=== PATIENT | female | born 1990 | race Caucasian/White ===

== ENCOUNTER 2019-04-29 21:22 | Observation (INO) ==
[2019-04-29] MEDS ORDERED: NORMAL SALINE 1,000 ML IV ONE ×2 (21:52→23:50)
[2019-04-29] MEDS ORDERED: ONDANSETRON HCL/PF 2 MG/ML VIAL IV ONE (21:52)
[2019-04-29] MEDS ORDERED: HYDROmorphone HCL 1 MG/ML DISP.SYRIN IV ONE ×3 (21:52→22:43)
--- NOTE | 2019-04-29 21:55 | ERNOTE ---
Abdominal HPI - Narrative Date of Service: 04/29/19 - General Chief Complaint: Abdominal Pain Time Seen by Provider: 04/29/19 21:36 Source: patient Exam Limitations: no limitations - Immun/Allergies/Home Medications Immunizatons: IMMUNIZATION HX Immunizations Up to Date Yes History of Influenza Vaccine No Hx Pneumococcal Vaccination No Allergies/Adverse Reactions: Allergies No Known Allergies Allergy (Unverified 04/29/19 21:33) Home Medications: HOME MEDICATIONS Bupropion HCl [Wellbutrin Sr] 150 mg PO DAILY 04/29/19 [Last Taken Unknown] FLUoxetine HCL [Fluoxetine HCl] 20 mg PO DAILY 04/29/19 [Last Taken Unknown] - Pain Score Pain Score #1 Pain Score: 8 Abdominal Pain Onset Location: RUQ, flank Pain Radiation: flank - History of Present Illness Narrative: 28-year-old female comes to the emergency room with a 2-day history of nausea vomiting diarrhea right upper quadrant pain she had diarrhea and vomiting multiple times lasting the last few hours patient has quite an extensive history of endometriosis hysterectomy and gallbladder at the age of 15 denies any fever or chills Date (Duration): 04/29/19 Time (Timing): 21:46 Timing: constant Quality: moderate Activities at Onset: none Associated Symptoms: Present: nausea, vomiting Prior Abdominal Problems: Present: other - Hysterectomy and cholecystectomy Review of Systems - Review of Systems Constitutional: Present: weakness, fatigue EYE: Present: no symptoms reported ENT: Present: no symptoms reported Respiratory: Present: no symptoms reported Cardiology: Present: no symptoms reported Gastrointestinal/Abdominal: Present: nausea, vomiting, diarrhea, abdominal pain Genitourinary: Present: no symptoms reported Musculoskeletal: Present: no symptoms reported Skin: Present: no symptoms reported Neurological: Present: no symptoms reported Endocrine: Present: no symptoms reported Hematologic/Lymphatic: Present: no symptoms reported Medical History (Last Reviewed 04/29/19 @ 21:48 by Francisco Harris MD) Anxiety Depression Hx of endometriosis No pertinent past medical history Surgical History: Surgical History (Last Reviewed 04/29/19 @ 21:48 by Francisco Harris MD) H/O: hysterectomy Hx of appendectomy Hx of cholecystectomy Family History: Family History (Last Reviewed 04/29/19 @ 21:44 by Cristy Garcia RN) Mother Depression Anxiety Father Diabetes Hypertension Social History: (Last Updated 04/29/19 @ 21:33 by Brandee Ramos RN) Tobacco: Smoking Status: Never smoker Alcohol: alcohol intake: never Substance Use: substance use type: does not use Physical Exam - Physical Exam General Appearance: Present: moderate distress Head Exam: Present: normal inspection Eye Exam: Normal inspection: bilateral Ears, Nose, Throat: Present: normal ENT inspection, dry mucous membranes Neck: Present: normal inspection Respiratory: Present: no respiratory distress Cardiovascular/Chest: Present: regular rate, rhythm Gastrointestinal/Abdominal: Present: soft, tenderness, abnormal bowel sounds - Decreased bowel. Absent: nondistended Back Exam: Present: normal inspection Extremity Exam: Present: normal inspection Neurological Exam: Present: alert, oriented Skin Exam: Present: normal color Lymphatic Exam: Present: no adenopathy Progress - Results and Orders Patient's Lab Results:: I have reviewed the patient's lab results. Results and Orders: Patient white count within normal limits chemistries show potassium 3.0 urine no infectious process but is very bloody CAT scan report was essentially no acute abnormalities patient still nauseous and complaining of pain we will continue to push fluids control her pain and try for admit her as observation for pain control and fluids her specific gravity is a 1030 - Vital Signs Patient's Vital Signs:: I have reviewed the patient's vital signs. 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
[2019-04-29 22:09] LABS: Hematocrit 34.2 % (37.0-47.0); Mean Cell Volume 87.2 fl (78-100); Mean Corpuscular Hemoglobin 28.1 pg (27-31); Mean Corpuscular Hgb Conc 32.2 g/dl (32-36); Neutrophil % 45.5 % (42-75.0); Platelet Count 242 K/mm3 (150-450); Red Blood Count 3.92 M/mm3 (4.2-5.4); Red Cell Distribution Width 14.1 % (11.5-14.0); White Blood Count 4.4 K/mm3 (4.0-10.5)
[2019-04-29 22:15] LABS: Urine Appearance Cloudy (CLEAR); Urine Bacteria 1+; Urine Bilirubin 1 mg/dl (NEGATIVE); Urine Blood 250 /ul (NEGATIVE); Urine Color Dark Yellow; Urine Ketone 15 mg/dL (NEGATIVE); Urine Nitrite Negative (NEGATIVE); Urine Protein 15 mg/dL (NEGATIVE); Urine RBC >50 /hpf (0-5); Urine Specific Gravity >=1.030 SP.GR. (1.005-1.010); Urine Urobilinogen Normal (NORMAL); Urine WBC TRACE /hpf (0-5); Urine pH 5.5 pH (5.0-7.0)
[2019-04-29] MEDS ORDERED: DIATRIZOATE MEGLUMINE, SODIUM 30 ML BTL PO ONE (22:16)
[2019-04-29 22:24] LABS: Albumin * 3.8 gm/dl (3.4-5.0); Anion Gap 13.3 mmol/L (6.8-13.8); BUN/Creatinine Ratio 7.5 (9.0-21.6); Bilirubin, Total 0.3 mg/dL (0.0-1.1); Calcium * 8.2 mg/dL (7.9-10.9); Carbon Dioxide 25.7 mmol/L (24-32.6); Total Protein 7.5 gm/dL (6.2-8.2)
[2019-04-29] MEDS ORDERED: POTASSIUM CHLORIDE 20 MEQ TABLET.SA PO ONE (23:41)
[2019-04-29] MEDS ORDERED: CEPHALEXIN MONOHYDRATE 250 MG CAPSULE PO ONE (23:42)
[2019-04-29] MEDS ORDERED: LEVOFLOXACIN IN DEXTROSE 5 % 500 MG/100 ML BAG IV SCH (23:45)
[2019-04-29] MEDS ORDERED: HYDROmorphone HCL 1 MG/ML DISP.SYRIN IM ONE (23:50)
[2019-04-30] MEDS ORDERED: IBUPROFEN 800 MG TABLET PO PRN (02:19)
[2019-04-30] MEDS ORDERED: ACETAMINOPHEN 500 MG TABLET PO PRN (02:20)
[2019-04-30] MEDS ORDERED: ONDANSETRON HCL/PF 2 MG/ML VIAL IV ONE (02:20)
[2019-04-30] MEDS ORDERED: HYDROmorphone HCL 1 MG/ML DISP.SYRIN IV ONE (02:30)
[2019-04-30] MEDS: POTASSIUM CHLORIDE IN WATER 100 ML IV SCH ×4 (03:06→06:11)
--- NOTE | 2019-04-30 06:46 | HP ---
Chief Complaint - Chief Complaint Date of Service: 04/30/19 Time of Service: 10:30 Chief Complaint: Right upper quadrant abdominal pain History of Present Illness: Plan 8-year-old female admitted to the floor for right upper quadrant abdominal pain. Active work-up completed in the ER which was unremarkable. Overnight patient with consistently asking for pain medication. Patient was not happy with my evaluation and was demanding pain medication or I discharge her. Patient left AMA shortly after. Medical History (Last Updated 04/30/19 @ 01:15 by Mayelin Sanford RN) Anxiety Depression Hx of endometriosis Kidney stones No pertinent past medical history Surgical History: Surgical History (Last Reviewed 04/30/19 @ 01:15 by Mayelin Sanford RN) H/O: hysterectomy Hx of appendectomy Hx of cholecystectomy Family History: Family History (Last Reviewed 04/30/19 @ 01:15 by Mayelin Sanford RN) Mother Depression Anxiety Father Diabetes Hypertension Social History: (Last Reviewed 04/30/19 @ 01:15 by Mayelin Sanford RN) Tobacco: Smoking Status: Never smoker Alcohol: alcohol intake: never Substance Use: substance use type: does not use Immunizations: IMMUNIZATION HX Immunizations Up to Date Yes History of Influenza Vaccine No Hx Pneumococcal Vaccination No Allergies/Adverse Reactions: Allergies Allergy/AdvReac Type Severity Reaction Status Date / Time metoclopramide [From Reglan] AdvReac Severe Other Verified 04/30/19 01:19 prochlorperazine AdvReac Severe Other Verified 04/30/19 01:19 [From Compazine] promethazine [From Phenergan] AdvReac Severe Other Verified 04/30/19 01:19 haloperidol [From Haldol] AdvReac Verified 04/30/19 01:17 Home Medications: HOME MEDICATIONS Bupropion HCl [Wellbutrin Sr] 150 mg PO DAILY 04/29/19 [Last Taken 04/28/19] FLUoxetine HCL [Fluoxetine HCl] 20 mg PO DAILY 04/29/19 [Last Taken 04/28/19] Estradiol [Climara] 0.1 mg TD Q2D 04/30/19 [Last Taken 04/28/19] Ondansetron HCl [Zofran] 8 mg PO QID PRN 04/30/19 [Last Taken Unknown] Exam - Exam Vital Signs: Vital Signs - Last Taken Temp 36.6 C 04/30/19 01:10 Pulse 78 04/30/19 01:10 Resp 16 04/30/19 01:10 BP 121/78 04/30/19 01:10 Pulse Ox 99 04/30/19 01:10 Diagnostic Studies: Abnormal Lab Results 04/29/19 04/29/19 04/29/19 Range/Units 21:55 22:05 22:05 RBC 3.92 L (4.2-5.4) M/mm3 Hgb 11.0 L (12.5-16.0) gm/dL Hct 34.2 L (37.0-47.0) % RDW 14.1 H (11.5-14.0) % Immature Gran % (Auto) 0.00 L (0.001-0.429) % Monocytes % 10.2 H (0.0-9) % Eosinophils % 3.4 H (0.0-3.0) % Potassium 3.0 L (3.4-4.6) mmol/L BUN/Creatinine Ratio 7.5 L (9.0-21.6) Calcium Adj for Albumin 8.0 L (8.4-10.2) mg/dL ALT 10 L (19-67) U/L Lipase 58 L (73-393) U/L Urine Protein 15 H (NEGATIVE) mg/dL Urine Blood 250 H (NEGATIVE) /ul Urine Bilirubin 1 H (NEGATIVE) mg/dl Prot Sulfosalicylic Acd 3+ H (0) mg/dL Urine RBC >50 H (0-5) /hpf Urine WBC Trace H (0-5) /hpf Urine Bacteria 1+ H (NONE) Laboratory Results WBC 4.4 K/mm3 (4.0-10.5) 04/29/19 22:05 RBC 3.92 M/mm3 (4.2-5.4) L 04/29/19 22:05 Hgb 11.0 gm/dL (12.5-16.0) L 04/29/19 22:05 Hct 34.2 % (37.0-47.0) L 04/29/19 22:05 MCV 87.2 fl (78-100) 04/29/19 22:05 MCH 28.1 pg (27-31) 04/29/19 22:05 MCHC 32.2 g/dl (32-36) 04/29/19 22:05 RDW 14.1 % (11.5-14.0) H 04/29/19 22:05 Plt Count 242 K/mm3 (150-450) 04/29/19 22:05 MPV 10.0 fl (8-12.5) 04/29/19 22:05 Immature Gran % (Auto) 0.00 % (0.001-0.429) L 04/29/19 22:05 Immature Gran # (Auto) 0.00 K/mm3 (0.000-0.0310) 04/29/19 22:05 Neutrophils % 45.5 % (42-75.0) 04/29/19 22:05 Lymphocytes % 40.2 % (20-51) 04/29/19 22:05 Monocytes % 10.2 % (0.0-9) H 04/29/19 22:05 Eosinophils % 3.4 % (0.0-3.0) H 04/29/19 22:05 Basophils % 0.7 % (0.0-1.0) 04/29/19 22:05 Nucleated RBC % 0.0 k/mm3 (0-1) 04/29/19 22:05 Neutrophils # 2.0 K/mm3 (1.3-6.0) 04/29/19 22:05 Lymphocytes # 1.77 k/mm3 (1.5-3.5) 04/29/19 22:05 Monocytes # 0.5 k/mm3 (0.0-1.0) 04/29/19 22:05 Eosinophils # 0.2 k/mm3 (0.0-0.7) 04/29/19 22:05 Absolute Basophils 0.0 k/mm3 (0.0-0.1) 04/29/19 22:05 Sodium 142 mmol/L (132-142) 04/29/19 22:05 Plasma Sodium 142 mmol/L (130-142) 04/29/19 22:05 Potassium 3.0 mmol/L (3.4-4.6) L 04/29/19 22:05 Chloride 106 mmol/L (97-106) 04/29/19 22:05 Carbon Dioxide 25.7 mmol/L (24-32.6) 04/29/19 22:05 Anion Gap 13.3 mmol/L (6.8-13.8) 04/29/19 22:05 BUN 6 mg/dL (3-23) 04/29/19 22:05 Creatinine 0.80 mg/dL (0.4-1.4) 04/29/19 22:05 Est GFR (Non-Af Amer) 92 mL/min (60-130) 04/29/19 22:05 BUN/Creatinine Ratio 7.5 (9.0-21.6) L 04/29/19 22:05 Random Glucose 81 mg/dL (70-110) 04/29/19 22:05 Calcium 8.2 mg/dL (7.9-10.9) 04/29/19 22:05 Calcium Adj for Albumin 8.0 mg/dL (8.4-10.2) L 04/29/19 22:05 Total Bilirubin 0.3 mg/dL (0.0-1.1) 04/29/19 22:05 AST 14 U/L (0-48) 04/29/19 22:05 ALT 10 U/L (19-67) L 04/29/19 22:05 Alkaline Phosphatase 127 U/L (50-170) 04/29/19 22:05 Total Protein 7.5 gm/dL (6.2-8.2) 04/29/19 22:05 Albumin 3.8 gm/dl (3.4-5.0) 04/29/19 22:05 Amylase 40 U/L (25-115) 04/29/19 22:05 Lipase 58 U/L (73-393) L 04/29/19 22:05 Urine Color Dark yellow 04/29/19 21:55 Urine Appearance Cloudy (CLEAR) 04/29/19 21:55 Urine pH 5.5 pH (5.0-7.0) 04/29/19 21:55 Ur Specific [place] >=1.030 SP.GR. (1.005-1.010) 04/29/19 21:55 Urine Protein 15 mg/dL (NEGATIVE) H 04/29/19 21:55 Urine Glucose (UA) Negative mg/dL (NEGATIVE) 04/29/19 21:55 Urine Ketones 15 mg/dL (NEGATIVE) 04/29/19 21:55 Urine Blood 250 /ul (NEGATIVE) H 04/29/19 21:55 Urine Nitrate Negative (NEGATIVE) 04/29/19 21:55 Urine Bilirubin 1 mg/dl (NEGATIVE) H 04/29/19 21:55 Urine Ictotest Negative (NEGATIVE) 04/29/19 21:55 Prot Sulfosalicylic Acd 3+ mg/dL (0) H 04/29/19 21:55 Urine Urobilinogen Normal EU/dl (NORMAL) 04/29/19 21:55 Ur Leukocyte Esterase Negative /ul (NEGATIVE) 04/29/19 21:55 Urine RBC >50 /hpf (0-5) H 04/29/19 21:55 Urine WBC Trace /hpf (0-5) H 04/29/19 21:55 Ur Epithelial Cells 0-5 /hpf (0-5) 04/29/19 21:55 Urine Bacteria 1+ (NONE) H 04/29/19 21:55 Urine Culture Comments No culture indicated 04/29/19 21:55 Assessment/Plan - Narrative Narrative: No physical examination or further intervention could be completed because patient left AMA - Assessment/Plan (1) Right upper quadrant abdominal pain Problem: Acute
[2019-04-30 07:28] LABS: Hematocrit 29.2 % (37.0-47.0); Hemoglobin 9.3 gm/dL (12.5-16.0); Mean Corpuscular Hemoglobin 28.4 pg (27-31); Mean Corpuscular Hgb Conc 31.8 g/dl (32-36); Mean Platelet Volume 9.9 fl (8-12.5); Neutrophil # 1.2 K/mm3 (1.3-6.0); Platelet Count 176 K/mm3 (150-450); Red Blood Count 3.28 M/mm3 (4.2-5.4); Red Cell Distribution Width 14.2 % (11.5-14.0); White Blood Count 3.2 K/mm3 (4.0-10.5)
[2019-04-30 07:47] LABS: Albumin * 2.9 gm/dl (3.4-5.0); Anion Gap 9.5 mmol/L (6.8-13.8); BUN/Creatinine Ratio 5.8 (9.0-21.6); Bilirubin, Total 0.3 mg/dL (0.0-1.1); Ca. Corrected For Albumin 7.9 mg/dL (8.4-10.2); Calcium * 7.3 mg/dL (7.9-10.9); Carbon Dioxide 26.5 mmol/L (24-32.6); Total Protein 5.7 gm/dL (6.2-8.2)
[2019-04-30] MEDS ORDERED: FLUOXETINE HCL 20 MG PO SCH (09:00)
[2019-04-30] MEDS ORDERED: BUPROPION HCL 150 MG PO SCH (09:00)
[2019-04-30 09:44] VITALS: BP 112/78
== END 2019-04-30 09:20 | disposition left against medical advice (07) ==
LOC: MS 21:22 → ER 21:22 → MS 04-30 01:10
PROVIDERS: ADMIT Family Medicine; ATTEND Family Medicine
DX: R10.11 Right upper quadrant pain
CPT/HCPCS: 36415; 74177; 80053; 81001; 82150; 83690; 85025; 87086; 96365; 96366; 96375; 99285; J2405; Q9967